=== PATIENT | female | born 1940 | race Caucasian/White ===

== ENCOUNTER → 2017-12-17 | Outpatient (CLI) | payer OTHER ==
[~2017-12-17] MED LIST: ASPIR 8181 MG PO; CARISOPRODOL 3350 MG PO; COZAAR 25 MG TA25 M1 PO; COZAAR 50 MG TA50 M1 PO; FENTANYL1 EACH TRANSDERM; GABAPENTIN 100100 MG PO; HYDROCHLOROTH12.5 M1 PO; IBUPROFEN 600600 M1 PO; LIDOPATCH1 EACH TOP; LUMIGAN2.5 M1 OPHTHALMIC; MACROBID 100 M100 M1 PO; MACROBID 100 M100 M2 PO; MEDROLDOSEPACK PO; MOBIC15 MG PO; NEURONTIN 300300 M1 PO; OMEPRAZOLE40 MG PO; ONDANSETRON HCL4 M2 PO; OXYCODONE HCL 55 MG PO; PREDNISONE 20 M20 MG PO; SIMVASTATIN40 MG PO; SODIUM CHLORIDE1 G2 PO; TRAMADOL 50 MG50 MG PO; ZOFRAN ODT4 MG PO
== END ==
LOC: M.RAD 09:17
DX: M51.16 Intervertebral disc disorders with radiculopathy, lumbar region (principal); M51.15 Intervertebral disc disorders with radiculopathy, thoracolumbar region; M12.88 Other specific arthropathies, not elsewhere classified, other specified site; I70.0 Atherosclerosis of aorta; I10 Essential (primary) hypertension; E78.5 Hyperlipidemia, unspecified

== ENCOUNTER 2017-12-18 09:54 | Emergency (ER) | payer OTHER ==
[~2017-12-18] VITALS: Ht 154.9 cm; Wt 61.2 kg
[2017-12-18] MEDS ORDERED: SIMVASTATIN40 MG PO (10:06)
[2017-12-18] MEDS ORDERED: ASPIR 8181 MG PO (10:07)
[2017-12-18] MEDS ORDERED: COZAAR 25 MG TA25 M1 PO (10:07)
[2017-12-18] MEDS ORDERED: HYDROCHLOROTH12.5 M1 PO (10:07)
[2017-12-18] MEDS ORDERED: MEDROLDOSEPACK PO (12:36)
[2017-12-18] MEDS ORDERED: TRAMADOL 50 MG50 MG PO (12:36)
[2017-12-18] MEDS ORDERED: ONDANSETRON HCL4 M2 PO (12:36)
[2017-12-18 13:10] VITALS: BP 166/78
== END 2017-12-18 13:11 | disposition home or self-care (01) ==
LOC: M.ERS 09:54
DX: M54.31 Sciatica, right side (principal); I10 Essential (primary) hypertension; E78.5 Hyperlipidemia, unspecified; Z88.5 Allergy status to narcotic agent

== ENCOUNTER 2017-12-26 11:18 | Inpatient (IN) | payer OTHER ==
[~2017-12-26] VITALS: Ht 154.9 cm; Wt 59.9 kg
[~2017-12-26 11:18] MED LIST changes: -CARISOPRODOL 3350 MG PO; -COZAAR 50 MG TA50 M1 PO; -FENTANYL1 EACH TRANSDERM; -GABAPENTIN 100100 MG PO; -IBUPROFEN 600600 M1 PO; -LIDOPATCH1 EACH TOP; -LUMIGAN2.5 M1 OPHTHALMIC; -MACROBID 100 M100 M1 PO; -MACROBID 100 M100 M2 PO; -MOBIC15 MG PO; -NEURONTIN 300300 M1 PO; -OMEPRAZOLE40 MG PO; -OXYCODONE HCL 55 MG PO; -PREDNISONE 20 M20 MG PO; -SODIUM CHLORIDE1 G2 PO; -ZOFRAN ODT4 MG PO
[2017-12-26 11:32] VITALS: BP 102/72
[2017-12-26 11:43] LABS: HEMOGLOBIN 11.9 gm/dL (12.0-15.0); MCH 31.2 pg (26.0-34.0); MCHC 35.1 g/dL (28.0-37.0); MCV 88.8 fL (80.0-100.0); MPV 7.5 fl. (7.2-11.1); NUCLEATED RBCS 0 /100WBC; PLATELET COUNT* 286 thou/uL (150-400); RBC 3.82 mil/uL (4.20-5.00); RDW-CV 12.6 % (10.5-14.5); WBC 9.3 thou/uL (4.0-11.0)
[2017-12-26 12:08] LABS: ALBUMIN 3.7 g/dL (3.4-5.0); CALCIUM 8.7 mg/dL (8.5-10.1); POTASSIUM 3.3 mmol/L (3.5-5.1); TOTAL BILIRUBIN 0.4 mg/dL (<0.1-1.0); TOTAL PROTEIN 7.3 g/dL (6.4-8.2)
[2017-12-26 12:32] LABS: ABSOLUTE LYMPHOCYTES 1.6 thou/uL (0.8-5.3); ABSOLUTE MONOCYTES 1.2 thou/uL (0.0-1.2); ABSOLUTE NEUTROPHILS 6.5 thou/uL (1.6-8.1); ANISOCYTOSIS 1+; PLATELET ESTIMATE ADEQUATE; POIKILOCYTOSIS 1+
[2017-12-26 13:13] LABS: URINE BILIRUBIN NEGATIVE (Negative); URINE BLOOD NEGATIVE (Negative); URINE CLARITY CLEAR; URINE COLOR YELLOW; URINE GLUCOSE-RANDOM NEGATIVE (Negative); URINE KETONES NEGATIVE (Negative); URINE NITRITE-REFLEX NEGATIVE (Negative); URINE PROTEIN NEGATIVE (Negative); URINE SPECIFIC GRAVITY <= 1.005 (1.005-1.030); URINE UROBILINOGEN 0.2 E.U./dl (0.2-1.0)
[2017-12-26 13:16] LABS: URINE LEUKOCYTES-REFLEX 2+ (Negative)
[2017-12-26 13:28] LABS: SQUAMOUS 4-10 Moderate /LPF (0-3); URINE WBC-REFLEX 6-15 Few /HPF (0-5)
[2017-12-26 13:29] LABS: BACTERIA-REFLEX 1-9 Few /HPF (None Seen); CASTS None Seen /LPF (None Seen); CRYSTALS None Seen /LPF (None Seen); MUCUS 0-3 Light strn/LPF (None Seen); URINE RBC 0-2 Rare /HPF (0-2)
[2017-12-26 14:19] VITALS: BP 173/73
[2017-12-26 16:38] VITALS: BP 145/70
--- NOTE | 2017-12-26 17:31 | NUR ---
PATIENT ARRIVED TO UNIT FROM ED AT 1420. PATIENT ALERT AND ORIENTED X4. ADMISSION ASSESSMENT AND HISTORY COMPLETED AND CHARTED. VSS ON ROOM AIR. FLUIDS STARTED AND INFUSED ORDERED. IV POTASSIUM ORDERED AND INFUSED. PATIENT ORIENTED TO ROOM AND INSTRUCTED TO USE CALL LIGHT FOR NEEDS. NPO AT THIS TIME UNTIL FIRTHER ORDERS. PATEINT RESTING COMFORTABLY IN BED AT THIS TIME. HOURLY ROUNDS MAINTAINED, CALL LIGHT WITHIN REACH, NURSING WILL CONTINUE O MONITOR.
[2017-12-26 20:30] VITALS: BP 119/56
[2017-12-27 00:39] VITALS: BP 153/66
[2017-12-27 04:40] LABS: HEMATOCRIT 28.3 % (37.0-47.0); MCH 31.3 pg (26.0-34.0); MCHC 34.7 g/dL (28.0-37.0); MCV 90.3 fL (80.0-100.0); MPV 7.5 fl. (7.2-11.1); RBC 3.14 mil/uL (4.20-5.00); RDW-CV 12.5 % (10.5-14.5); WBC 7.7 thou/uL (4.0-11.0)
[2017-12-27 04:55] LABS: HEMOGLOBIN 9.8 gm/dL (12.0-15.0)
[2017-12-27 05:05] LABS: ALBUMIN 2.8 g/dL (3.4-5.0); CALCIUM 8.1 mg/dL (8.5-10.1); CREATININE 0.7 mg/dL (0.6-1.3); MAGNESIUM 1.7 mg/dL (1.8-2.4); POTASSIUM 4.1 mmol/L (3.5-5.1); TOTAL BILIRUBIN 0.2 mg/dL (<0.1-1.0); TOTAL PROTEIN 5.3 g/dL (6.4-8.2)
--- NOTE | 2017-12-27 05:51 | NUR ---
ALERT AND ORIENTED X4 WITH PERIODS OF FORGETFULNESS. REMAINS NPO EXCEPT ICE CHIPS. USING IV AND PO PAIN MEDICATION TO HELP WITH ABDOMINAL PAIN. DENIES NEED FOR NAUSEA MEDICATIONS. IVF INFUSING WITHOUT DIFFICULTY. CALL LIGHT WITHIN REACH.
[2017-12-27 08:15] VITALS: BP 122/53
[2017-12-27 16:18] VITALS: BP 124/69
--- NOTE | 2017-12-27 18:36 | NUR ---
PATIENT RESTING IN BED. PATIENT IS UP AD NEFTALY IN ROOM. PATIENT HAD COMPLAINTS OF CONSTIPATION THIS AM, BUT IS HAVING LOOSE STOLLS THIS EVENING. PATIEN THAS SCIATICA PAIN TREATED WELL WITH TRAMADOL. PATIENT HAS GOOD APPETITE AND IS TOLERATING REGULAR DIET THIS EVENING. PATIENT DENIES ANY NEEDS AT THIS TIME. CALL LIGHT WITHIN REACH. WILL CONTINUE TO MONITOR.
[2017-12-27 21:04] VITALS: BP 119/60
--- NOTE | 2017-12-28 05:00 | NUR ---
UP WITH STAND BY ASSIST. ALERT AND ORIENTED X4. USING PO PAIN MEDICATION FOR BACK PAIN WHICH IS HELPFUL. NO C/O N/V. CONTINUES ON IVF WITHOUT DIFFICULTY. PROGRESSING TOWARD DISCHRGE GOAL.
[2017-12-28 05:01] LABS: HEMATOCRIT 30.7 % (37.0-47.0); HEMOGLOBIN 10.5 gm/dL (12.0-15.0); MCH 31.4 pg (26.0-34.0); MCHC 34.1 g/dL (28.0-37.0); MCV 92.3 fL (80.0-100.0); RBC 3.33 mil/uL (4.20-5.00); RDW-CV 13.1 % (10.5-14.5); WBC 8.6 thou/uL (4.0-11.0)
[2017-12-28 05:06] LABS: ALBUMIN 2.9 g/dL (3.4-5.0); CALCIUM 7.9 mg/dL (8.5-10.1); CREATININE 0.7 mg/dL (0.6-1.3); MAGNESIUM 1.9 mg/dL (1.8-2.4); POTASSIUM 3.6 mmol/L (3.5-5.1); TOTAL BILIRUBIN 0.2 mg/dL (<0.1-1.0); TOTAL PROTEIN 5.8 g/dL (6.4-8.2)
[2017-12-28 07:53] VITALS: BP 152/72
[2017-12-28] MEDS ORDERED: MACROBID 100 M100 M2 PO (08:29)
[2017-12-28] MEDS ORDERED: TRAMADOL 50 MG50 MG PO (08:29)
[2017-12-28 08:44] VITALS: BP 119/60
[2017-12-28 11:17] VITALS: BP 119/60
[2017-12-28 12:00] VITALS: BP 160/62
--- NOTE | 2017-12-28 12:32 | NUR ---
PT AND FAMILY VERBALIZED UNDERSTANDING REGARDING DISCHARGE. PT UNDERSTOOD SHE SHOULD EXPECT A CALL FROM HOME HEALTH LATER IN THE AFTERNOON ON Friday12/30/17. PT GIVEN ALTERNATIVE PCP INFORMATION. PT REQUESTED RX FOR ZOFRAN AND DR LAINEZ NOTIFIED. IV REMOVED BY [employer]ENDER AND PT IS GETTING READY TO LEAVE. PT VSS THIS SHIFT AND TOLERATING DIET WITH NO CONCERNS. WILL TAKE PT OUT WITH STAFF AND WHEELCHAIR.
[2017-12-28] MEDS ORDERED: ZOFRAN ODT4 MG PO (12:36)
== END 2017-12-28 15:10 | disposition home health service (06) | DRG 689 ==
LOC: M.ERS 11:18 → M.TBA-ER 13:57 → M.ORTHSURG 13:57
PROVIDERS: Nurse Practitioner Family; ADMIT Internal Medicine
DX: N12 Tubulo-interstitial nephritis, not specified as acute or chronic (principal); K85.90 Acute pancreatitis without necrosis or infection, unspecified; E87.1 Hypo-osmolality and hyponatremia; N39.0 Urinary tract infection, site not specified; K59.00 Constipation, unspecified; N32.81 Overactive bladder; I10 Essential (primary) hypertension; E78.5 Hyperlipidemia, unspecified; E87.6 Hypokalemia; E86.0 Dehydration; Z79.82 Long term (current) use of aspirin; Z90.710 Acquired absence of both cervix and uterus; Z88.6 Allergy status to analgesic agent; Z79.899 Other long term (current) drug therapy

== ENCOUNTER 2018-01-15 10:33 | Inpatient (IN) | payer OTHER ==
[~2018-01-15] VITALS: Ht 154.9 cm; Wt 56.7 kg
[~2018-01-15 10:33] MED LIST changes: +MACROBID 100 M100 M2 PO; +ZOFRAN ODT4 MG PO
[2018-01-15 10:34] VITALS: BP 179/72
[2018-01-15] MEDS ORDERED: CARISOPRODOL 3350 MG PO (10:39)
[2018-01-15] MEDS ORDERED: LUMIGAN2.5 M1 OPHTHALMIC (10:40)
[2018-01-15] MEDS ORDERED: OMEPRAZOLE40 MG PO (10:40)
[2018-01-15] MEDS ORDERED: MOBIC15 MG PO (10:40)
[2018-01-15 12:45] LABS: ABSOLUTE EOSINOPHILS 0.1 thou/uL (0.0-0.7); ABSOLUTE LYMPHOCYTES 1.2 thou/uL (0.8-5.3); ABSOLUTE MONOCYTES 0.2 thou/uL (0.0-1.2); ABSOLUTE NEUTROPHILS 6.9 thou/uL (1.6-8.1); BASOPHILS 0.4 %; EOSINOPHILS 1.1 %; HEMATOCRIT 36.6 % (37.0-47.0); HEMOGLOBIN 12.5 gm/dL (12.0-15.0); LYMPHOCYTES 14.3 %; MCH 30.9 pg (26.0-34.0); MCHC 34.3 g/dL (28.0-37.0); MCV 90.1 fL (80.0-100.0); MONOCYTES 2.8 %; MPV 7.6 fl. (7.2-11.1); NUCLEATED RBCS 0 /100WBC; PLATELET COUNT* 349 thou/uL (150-400); POLYS 81.4 %; RBC 4.06 mil/uL (4.20-5.00); RDW-CV 12.5 % (10.5-14.5); WBC 8.4 thou/uL (4.0-11.0)
[2018-01-15 12:53] LABS: CALCIUM 9.3 mg/dL (8.5-10.1); CREATININE 0.9 mg/dL (0.6-1.3); POTASSIUM 3.5 mmol/L (3.5-5.1)
[2018-01-15 12:58] LABS: ALBUMIN 3.8 g/dL (3.4-5.0); TOTAL BILIRUBIN 0.6 mg/dL (<0.1-1.0); TOTAL PROTEIN 7.8 g/dL (6.4-8.2)
[2018-01-15 14:26] VITALS: BP 165/70
[2018-01-15 14:45] VITALS: BP 188/95
[2018-01-15 18:08] LABS: URINE BILIRUBIN NEGATIVE (Negative); URINE BLOOD NEGATIVE (Negative); URINE CLARITY CLEAR; URINE COLOR YELLOW; URINE GLUCOSE-RANDOM NEGATIVE (Negative); URINE KETONES TRACE (Negative); URINE LEUKOCYTES-REFLEX NEGATIVE (Negative); URINE NITRITE-REFLEX NEGATIVE (Negative); URINE PROTEIN NEGATIVE (Negative); URINE SPECIFIC GRAVITY <= 1.005 (1.005-1.030); URINE UROBILINOGEN 0.2 E.U./dl (0.2-1.0)
[2018-01-16] VITALS: BP 153/71
[2018-01-16 05:05] LABS: HEMATOCRIT 30.3 % (37.0-47.0); HEMOGLOBIN 10.6 gm/dL (12.0-15.0); MCH 31.1 pg (26.0-34.0); MCHC 34.9 g/dL (28.0-37.0); MCV 89.2 fL (80.0-100.0); MPV 8.3 fl. (7.2-11.1); RBC 3.39 mil/uL (4.20-5.00); RDW-CV 12.4 % (10.5-14.5); WBC 8.5 thou/uL (4.0-11.0)
[2018-01-16 05:22] LABS: CALCIUM 8.6 mg/dL (8.5-10.1); MAGNESIUM 1.9 mg/dL (1.8-2.4)
[2018-01-16 05:28] LABS: POTASSIUM 4.5 mmol/L (3.5-5.1)
[2018-01-16 07:50] VITALS: BP 126/58
[2018-01-16 09:13] LABS: POTASSIUM 3.8 mmol/L (3.5-5.1)
[2018-01-16 21:00] VITALS: BP 135/68
[2018-01-17 04:28] LABS: HEMATOCRIT 30.8 % (37.0-47.0); HEMOGLOBIN 10.6 gm/dL (12.0-15.0); MCH 30.6 pg (26.0-34.0); MCHC 34.4 g/dL (28.0-37.0); MCV 88.9 fL (80.0-100.0); MPV 8.1 fl. (7.2-11.1); RBC 3.46 mil/uL (4.20-5.00); RDW-CV 12.7 % (10.5-14.5); WBC 14.1 thou/uL (4.0-11.0)
[2018-01-17 04:41] LABS: ALBUMIN 3.4 g/dL (3.4-5.0); CALCIUM 8.6 mg/dL (8.5-10.1); CREATININE 1.2 mg/dL (0.6-1.3); POTASSIUM 4.2 mmol/L (3.5-5.1); TOTAL BILIRUBIN 0.3 mg/dL (<0.1-1.0); TOTAL PROTEIN 6.3 g/dL (6.4-8.2)
[2018-01-17 16:00] VITALS: BP 160/70
[2018-01-17 21:00] VITALS: BP 151/91
[2018-01-18 04:36] LABS: HEMOGLOBIN 10.7 gm/dL (12.0-15.0); MCH 30.8 pg (26.0-34.0); MCHC 34.5 g/dL (28.0-37.0); MCV 89.2 fL (80.0-100.0); MPV 8.4 fl. (7.2-11.1); RBC 3.47 mil/uL (4.20-5.00); RDW-CV 12.3 % (10.5-14.5); WBC 9.1 thou/uL (4.0-11.0)
[2018-01-18 06:06] LABS: CALCIUM 8.6 mg/dL (8.5-10.1); CREATININE 1.1 mg/dL (0.6-1.3); POTASSIUM 3.8 mmol/L (3.5-5.1)
--- NOTE | 2018-01-18 09:51 | CON ---
[address] [address] CONSULTATION Name: REGINALDO DUENAS Room: [address] IN M.R.#: [id number] Admission: 01/15/18 Attend Phys: Jennifer Lancaster MD Discharge: Date of : 42 Report #: [id number] THIS REPORT FOR: //name// CC: Jennifer Martin DICTATED BY: Lamonte Stroud DO CHIEF COMPLAINT: Low back and right lower extremity pain. HISTORY OF PRESENT ILLNESS: The patient presented to [facility] ED recently for evaluation of low back pain, which radiated to her right lower extremity. She has been seen and treated at this institution back in November for a similar problem. She states she was sent home with home health physical therapy, as well as some pain medication. She has not seen much improvement. Over the last couple days, her pain has progressively gotten worse to the point, where she had difficulty walking. For this reason, she presented to the ED. Our service was consulted for recommendations. Upon seeing her this morning, she again complains of low back pain which radiates down the posterolateral aspect of her leg and into her heel. She also described some numbness in this area. She also feels as if her right leg is weaker than the left. No recent injuries. Other than physical therapy and pain medication, she has not had any treatment for this problem since being discharged. PAST MEDICAL HISTORY: Includes hypertension and hyperlipidemia. PAST SURGICAL HISTORY: Significant for hysterectomy. SOCIAL HISTORY: Nontobacco user. FAMILY HISTORY: Noncontributory. MEDICATIONS: Reviewed in the chart. ALLERGIES: HYDROCODONE. REVIEW OF SYSTEMS: Twelve-point review of systems is performed and is negative except for that listed in HPI. PHYSICAL EXAMINATION: VITAL SIGNS: Stable. GENERAL: Awake, alert and oriented x 3, no acute distress. HEENT: Head normocephalic, atraumatic. Eyes: Pupils equal, round, reactive to light. ENT: Mucous membranes pink and moist. NECK: Supple. CARDIOVASCULAR: [place] [address] CONSULTATION Name: REGINALDO DUENAS Room: [address] IN [facility]#: [id number] Admission: 01/15/18 Attend Phys: Jennifer Lancaster MD Discharge: Date of : 42 Report #: [id number] RESPIRATORY: Nonlabored. ABDOMEN: Nondistended. SKIN: Warm, dry and intact. NEUROLOGIC: Motor and sensory function grossly intact other than that listed in the right lower extremity in the musculoskeletal portion. PSYCHIATRIC: Appropriate mood and affect. MUSCULOSKELETAL: When asked to describe where her pain is, she points to her lower back region and down the posterolateral aspect of her right lower extremity, down to her heel. No pain or numbness in her foot. She also describes paresthesias in the same area. Otherwise, sensation is intact. She does have 5/5 strength to knee extension, great toe extension and plantar flexion. Her capillary refill is brisk. IMAGING: Her MRI is reviewed, which shows a disk protrusion at L5-S1 as well as degenerative changes at L4-L5. IMPRESSION: Low back pain with right lower extremity radiculopathy. RECOMMENDATIONS: We discussed the clinical and MRI findings with the patient. Her symptoms are consistent with lumbar, lower extremity radiculopathy. At this time, we recommend continued physical therapy for mobility. We also recommend followup with Spine and/or pain management for further treatment of this pain. She is okay to weightbear as tolerated. We will be available to assist further assist in the patient's care, if needed: <ELECTRONICALLY SIGNED> By: Elise Patel DO 01/18/18 [id number] Patel DO /nt
[2018-01-18 10:53] VITALS: BP 149/55
[2018-01-18 13:31] LABS: CREATININE 1.4 mg/dL (0.6-1.3); POTASSIUM 3.5 mmol/L (3.5-5.1)
[2018-01-18 15:54] VITALS: BP 167/70
[2018-01-18 21:00] VITALS: BP 175/80
[2018-01-19 06:01] LABS: CALCIUM 8.1 mg/dL (8.5-10.1); POTASSIUM 3.5 mmol/L (3.5-5.1)
[2018-01-19 08:35] VITALS: BP 138/61
[2018-01-19 10:09] LABS: CORTISOL AM 2.8 ug/dL (6.2-19.4)
[2018-01-19 16:00] VITALS: BP 152/74
[2018-01-19 20:30] VITALS: BP 157/69
[2018-01-20 04:32] LABS: HEMOGLOBIN 10.6 gm/dL (12.0-15.0); RBC 3.41 mil/uL (4.20-5.00); RDW-CV 12.9 % (10.5-14.5); WBC 11.7 thou/uL (4.0-11.0)
[2018-01-20 04:51] LABS: CALCIUM 8.6 mg/dL (8.5-10.1); POTASSIUM 4.4 mmol/L (3.5-5.1)
[2018-01-20 08:15] VITALS: BP 148/63
[2018-01-20] MEDS ORDERED: MACROBID 100 M100 M1 PO (09:07)
[2018-01-20] MEDS ORDERED: TRAMADOL 50 MG50 MG PO (09:07)
[2018-01-20] MEDS ORDERED: SODIUM CHLORIDE1 G2 PO (09:07)
[2018-01-20] MEDS ORDERED: OXYCODONE HCL 55 MG PO (09:07)
[2018-01-20] MEDS ORDERED: IBUPROFEN 600600 M1 PO (09:07)
[2018-01-20] MEDS ORDERED: COZAAR 50 MG TA50 M1 PO (09:07)
[2018-01-20] MEDS ORDERED: PREDNISONE 20 M20 MG PO (09:07)
[2018-01-20] MEDS ORDERED: NEURONTIN 300300 M1 PO (09:07)
[2018-01-20] MEDS ORDERED: GABAPENTIN 100100 MG PO (09:07)
[2018-01-20] MEDS ORDERED: LIDOPATCH1 EACH TOP (09:07)
[2018-01-20] MEDS ORDERED: FENTANYL1 EACH TRANSDERM (09:07)
[2018-01-20 13:20] VITALS: BP 157/69
[2018-01-20 16:11] VITALS: BP 157/69
[2018-01-20 18:14] VITALS: BP 157/69
--- NOTE | 2018-02-08 08:39 | CON ---
[address] [address] CONSULTATION Name: REGINALDO DUENAS Room: [address] IN ..#: [id number] Admission: 01/15/18 Attend Phys: Jennifer Lancaster MD Discharge: 01/20/18 Date of : 42 Report #: [id number] THIS REPORT FOR: //name// CC: Jennifer Martin This is a consultation obtained by Dr. Lancaster for hyponatremia. HISTORY OF PRESENT ILLNESS: The patient is a 77-year-old female who was admitted a few days ago for worsening lower back pain radiating to her leg. She was here in the hospital for similar symptoms along with cramping, abdominal pain, nausea and vomiting a few weeks ago. She was also found to be hyponatremic at that time. Her sodium level on admission at that time were 122 and improved to 133 before discharge. On admission this time, her sodium level was 126 and has progressively dropped down to 122 as of yesterday. She was also on hydrochlorothiazide on admission, which was stopped 2 days ago. Her last was on 01/16. She continues to have pain, which is only slightly improved with all the interventions that have been done for her yet. She denies any nausea at this time. No abdominal pain reported. No fevers, rigors or chills. No chest pain or shortness of breath. PAST MEDICAL HISTORY: Significant for abdominal pain, history of hyponatremia, intractable back pain, sciatica like radiation of the pain to the right side, pancreatitis, history of UTIs, dyslipidemia and hypertension. HOME MEDICATIONS: Simvastatin, losartan, aspirin, hydrochlorothiazide, carisoprodol, meloxicam and omeprazole. PERSONAL, SOCIAL AND FAMILY HISTORY: No smoking and no alcohol. No significant family history of end-stage renal disease or renal failure, etc. REVIEW OF SYSTEMS: No fevers, rigors or chills. No chest pain or shortness of breath reported. She appears comfortable, but does have significant pain in her right leg with minimal movement. She has been referred to pain management, but has not been seen by them yet. PHYSICAL EXAMINATION: GENERAL: She appears awake, alert and oriented x 3. VITAL SIGNS: His blood pressure is 151/91, pulse rate is 90, temperature 36.6. GENERAL: Awake, alert and oriented. LUNGS: Clear. HEART: Regular S1, S2. ABDOMEN: Soft and nontender. EXTREMITIES: Showed trace edema bilaterally. LABORATORY DATA: White count is 9.1 and hemoglobin is 10.7. Sodium is 123, [facility] [address] [place] [address] CONSULTATION Name: REGINALDO DUENAS Room: [address]#: [id number] Admission: 01/15/18 Attend Phys: Jennifer Lancaster MD Discharge: 01/20/18 Date of : 42 Report #: [id number] potassium is 3.8, chloride 88, bicarbonate 26, BUN is 23, creatinine is 1.1, glucose 113, calcium 8.6. Liver function tests are grossly normal. Alkaline phosphatase is normal. Albumin level is 3.4. Urinalysis shows specific gravity of less than 1.005 and trace ketones. Urine sodium is 23. Urine osmolality is pending. An MRI of the lumbar spine was done 2 days ago, which shows broad-based paracentral disk protrusion at L5-S1 with a small disk extrusion on the right lateral aspect of the spinal canal with S1 impingement and facet arthropathy was also noted. ASSESSMENT AND PLAN: 1. Acute hyponatremia. 2. History of hyponatremia recently on this admission also, but corrected to 133 before discharge. 3. Use of hydrochlorothiazide at home. 4. Intractable pain. 5. Lumbar spine intervertebral disk protrusion as described above. PLAN: 1. Hyponatremia. She does appear euvolemic by exam. Hyponatremia could be precipitated by the intractable pain as well as by the use of hydrochlorothiazide. Her TSH is low. Cortisol levels are pending. Urine sodium is low. Urine osmolality is pending. 2. Based on my clinical assessment, I would recommend putting the patient on free water fluid restriction 1.2 liters, give normal saline at 100 mL an hour. Repeat sodium levels in 6 hours. 3. Okay to continue salt tabs for now. 4. The findings and plan were discussed with the patient and nursing staff. <ELECTRONICALLY SIGNED> By: Arsenio Chapin MD 02/08/18 0839 [id number] Chapin MD /nt
== END 2018-01-20 17:55 | disposition home or self-care (01) | DRG 644 ==
LOC: M.ERS 10:33 → M.TBA-ER 13:27 → M.ORTHSURG 13:27 → M.3W 13:27 → M.ORTHSURG 01-16 17:35
PROVIDERS: Emergency Medicine Emergency Medical Services; Internal Medicine Nephrology; ADMIT Internal Medicine
DX: E22.2 Syndrome of inappropriate secretion of antidiuretic hormone (principal); N39.0 Urinary tract infection, site not specified; M51.16 Intervertebral disc disorders with radiculopathy, lumbar region; M25.80 Other specified joint disorders, unspecified joint; I10 Essential (primary) hypertension; T50.2X5A Adverse effect of carbonic-anhydrase inhibitors, benzothiadiazides and other diuretics, initial encounter; Z90.710 Acquired absence of both cervix and uterus; E78.5 Hyperlipidemia, unspecified; Z79.899 Other long term (current) drug therapy; Z88.8 Allergy status to other drugs, medicaments and biological substances; Z79.82 Long term (current) use of aspirin; Z87.440 Personal history of urinary (tract) infections; Y92.89 Other specified places as the place of occurrence of the external cause